=== PATIENT | male | born 1995 | race Caucasian/White ===

== ENCOUNTER 2017-04-28 11:27 | Emergency (ER) | payer BC, OTHER ==
[~2017-04-28] VITALS: Ht 175.3 cm; Wt 95.3 kg
[2017-04-28] MEDS ORDERED: DICY10CA12 PO (12:04)
[2017-04-28] MEDS ORDERED: ONDANSETRON 4 MG/2 ML (SDV) Z0FRAN IVP ONE (12:15)
[2017-04-28 12:27] LABS: BASOPHILS % (AUTO) 1 % (0-10); EOSINOPHILS # (AUTO) 0.1 10^3/uL (0.0-0.3); EOSINOPHILS % (AUTO) 1 % (0-10); LYMPHOCYTES # (AUTO) 1.1 X 10^3 (1.0-4.0); LYMPHOCYTES % (AUTO) 17 % (12-44); MEAN CORPUSCULAR HEMOGLOBIN 28 PG (25-34); MEAN CORPUSCULAR HGB CONC 34 G/DL (32-36); MEAN CORPUSCULAR VOLUME 84 FL (80-99); MEAN PLATELET VOLUME 10.4 FL (7.4-10.4); MONOCYTES # (AUTO) 0.5 X 10^3 (0.0-1.0); MONOCYTES % (AUTO) 8 % (0-12); NEUTROPHILS # (AUTO) 4.4 X 10^3 (1.8-7.8); NEUTROPHILS % (AUTO) 73 % (42-75); PLATELET COUNT 228 10^3/uL (130-400); RED CELL DISTRIBUTION WIDTH 14.3 % (10.0-14.5)
[2017-04-28 12:28] LABS: BILIRUBIN,URINE NEGATIVE (NEGATIVE); KETONES,URINE NEGATIVE (NEGATIVE); LEUKOCYTE ESTERASE ,URINE NEGATIVE (NEGATIVE); NITRITE,URINE NEGATIVE (NEGATIVE); PH,URINE 6.5 (5-9); PROTEIN,URINE 1+ (NEGATIVE); UROBILINOGEN,URINE NORMAL (NORMAL)
--- NOTE | 2017-04-28 12:32 | ED Abdominal Pain ---
General Chief Complaint: Abdominal/GI Problems Stated Complaint: SHARP STOMACH PAINS Nursing Triage Note: c/o right sided abd pain. Onset 0200 this morning. Nausea/vomiting reported. Sepsis Screen: No Definite Risk Source of Information: Patient Exam Limitations: No Limitations History of Present Illness Time Seen By Provider: 11:53 Initial Comments This 21-year-old young man presents to the emergency room with complaints of right lower quadrant pain just to the right of the umbilicus which she rates as 8/10. It woke him at 02:00. Patient was able to drive himself here and stated the car ride did not exacerbate his pain. He has a history of 2 prior episodes for which she was evaluated at another facility. He states he did not receive an official diagnosis for these episodes. He has had some vomiting but denies any fever, diarrhea, constipation, or urinary changes. He reports taking Zofran and dicyclomine at home without benefit. He denies any rectal bleeding. He denies any alcohol use but does admit to marijuana use as recently as one week ago. He has a history of inguinal hernia surgery 2. Allergies and Home Medications Allergies Coded Allergies: No Known Drug Allergies (Unverified , 04/28/17) Home Medications Dicyclomine HCl 10 Mg Capsule, 10 MG PO BID, (Reported) Ondansetron 4 Mg Tab.rapdis, 4 MG SL Q4H PRN for NAUSEA/VOMITING-1ST LINE, #10 Prescribed by: BRYAN SHEA on 04/28/17 1830 Oxycodone HCl/Acetaminophen 1 Each Tablet, 1-2 EACH PO Q4H PRN for PAIN- MODERATE TO SEVERE, #10 Prescribed by: BRYAN SHEA on 04/28/17 1830 Review of Systems Constitutional: no symptoms reported EENTM: No Symptoms Reported Respiratory: No Symptoms Reported Cardiovascular: No Symptoms Reported Gastrointestinal: See HPI Genitourinary: No Symptoms Reported Musculoskeletal: no symptoms reported Skin: no symptoms reported Psychiatric/Neurological: No Symptoms Reported Endocrine: No Symptoms Reported Hematologic/Lymphatic: No Symptoms Reported Past Lbrlsgo-Wpyyjk-Nafbby Hx Patient Social History Alcohol Use: Denies Use Recreational Drug Use: No Smoking Status: Never a Smoker Recent Foreign Travel: No Contact w/Someone Who Travel: No Recent Infectious Disease Expo: No Surgeries HX Surgeries: Yes Surgeries: Orthopedic (knee) Respiratory Hx Respiratory Disorders: No Cardiovascular Hx Cardiac Disorders: No Neurological Hx Neurological Disorders: No Reproductive System Hx Reproductive Disorders: No Genitourinary Hx Genitourinary Disorders: No Gastrointestinal Hx Gastrointestinal Disorders: Yes (recurrent episodes of abdominal pain, history of inguinal hernia) Musculoskeletal Hx Musculoskeletal Disorders: No Endocrine Hx Endocrine Disorders: No HEENT HX ENT Disorders: No Cancer Hx Cancer: No Psychosocial Hx Psychiatric Problems: No Physical Exam Vital Signs VS - Last 72 Hours, by Label 04/28/17 04/28/17 04/28/17 11:58 12:45 15:11 Temp 96.4 96.4 96.4 Pulse 70 Resp 16 B/P (MAP) 134/94 Pulse Ox 98 O2 Delivery Room Air Capillary Refill : Less Than 3 Seconds General Appearance: WD/WN, no apparent distress HEENT: PERRL/EOMI, normal ENT inspection, pharynx normal Neck: normal inspection Respiratory: lungs clear, normal breath sounds, no respiratory distress, no accessory muscle use Cardiovascular: regular rate, rhythm, no edema, no murmur Gastrointestinal: normal bowel sounds, soft, No distended, No guarding, No rebound, tenderness (right lower quadrant), other (positive Rovsing, negative psoas) Extremities: normal inspection, no pedal edema Back: normal inspection, CVA tenderness (R) (minimal), CVA tenderness (L) ( minimal) 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, no motor/sensory deficits, alert, normal mood/affect, oriented x 3 Skin: normal color, warm/dry Progress/Results/Core Measures Results/Orders Lab Results Laboratory Tests Test 04/28/17 11:50 04/28/17 12:15 Range/Units Urine Color YELLOW Urine Clarity CLEAR Urine pH 6.5 5-9 Urine Specific [place] 1.015 L 1.016-1.022 Urine Protein 1+ H NEGATIVE Urine Glucose (UA) NEGATIVE NEGATIVE Urine Ketones NEGATIVE NEGATIVE Urine Nitrite NEGATIVE NEGATIVE Urine Bilirubin NEGATIVE NEGATIVE Urine Urobilinogen NORMAL NORMAL MG/DL Urine Leukocyte Esterase NEGATIVE NEGATIVE Urine RBC (Auto) NEGATIVE NEGATIVE Urine RBC NONE /HPF Urine WBC NONE /HPF Urine Squamous Epithelial Cells RARE /HPF Urine Crystals NONE /LPF Urine Bacteria NEGATIVE /HPF Urine Casts NONE /LPF Urine Mucus SMALL H /LPF Urine Culture Indicated NO Urine Opiates Screen NEGATIVE NEGATIVE Urine Oxycodone Screen POSITIVE H NEGATIVE Urine Methadone Screen NEGATIVE NEGATIVE Urine Propoxyphene Screen NEGATIVE NEGATIVE Urine Barbiturates Screen NEGATIVE NEGATIVE Ur Tricyclic Antidepressants Screen NEGATIVE NEGATIVE Urine Phencyclidine Screen NEGATIVE NEGATIVE Urine Amphetamines Screen POSITIVE H NEGATIVE Urine Methamphetamines Screen NEGATIVE NEGATIVE Urine Benzodiazepines Screen NEGATIVE NEGATIVE Urine Cocaine Screen NEGATIVE NEGATIVE Urine Cannabinoids Screen NEGATIVE NEGATIVE White Blood Count 6.0 4.3-11.0 10^3/uL Red Blood Count 5.50 4.35-5.85 10^6/uL Hemoglobin 15.4 13.3-17.7 G/DL Hematocrit 46 40-54 % Mean Corpuscular Volume 84 80-99 FL Mean Corpuscular Hemoglobin 28 25-34 PG Mean Corpuscular Hemoglobin Concent 34 32-36 G/DL Red Cell Distribution Width 14.3 10.0-14.5 % Platelet Count 228 130-400 10^3/uL Mean Platelet Volume 10.4 7.4-10.4 FL Neutrophils (%) (Auto) 73 42-75 % Lymphocytes (%) (Auto) 17 12-44 % Monocytes (%) (Auto) 8 0-12 % Eosinophils (%) (Auto) 1 0-10 % Basophils (%) (Auto) 1 0-10 % Neutrophils # (Auto) 4.4 1.8-7.8 X 10^3 Lymphocytes # (Auto) 1.1 1.0-4.0 X 10^3 Monocytes # (Auto) 0.5 0.0-1.0 X 10^3 Eosinophils # (Auto) 0.1 0.0-0.3 10^3/uL Basophils # (Auto) 0.0 0.0-0.1 10^3/uL Sodium Level 139 135-145 MMOL/L Potassium Level 4.2 3.6-5.0 MMOL/L Chloride Level 104 98-107 MMOL/L Carbon Dioxide Level 23 21-32 MMOL/L Anion Gap 12 5-14 MMOL/L Blood Urea Nitrogen 9 7-18 MG/DL Creatinine 1.21 0.60-1.30 MG/DL Estimat Glomerular Filtration Rate > 60 BUN/Creatinine Ratio 7 Glucose Level 98 70-105 MG/DL Calcium Level 10.0 8.5-10.1 MG/DL Total Bilirubin 1.1 H 0.1-1.0 MG/DL Aspartate Amino Transf (AST/SGOT) 16 5-34 U/L Alanine Aminotransferase (ALT/SGPT) 18 0-55 U/L Alkaline Phosphatase 74 40-136 U/L C-Reactive Protein High Sensitivity 0.02 0.00-0.50 MG/DL Total Protein 8.4 H 6.4-8.2 GM/DL Albumin 4.8 H 3.2-4.5 GM/DL Lipase 9 8-78 U/L My Orders Orders - BRYAN CALVILLO MD Cbc With Automated Diff (04/28/17 12:01) Comprehensive Metabolic Panel (04/28/17 12:01) Lipase (04/28/17 12:01) Ua Culture If Indicated (04/28/17 12:01) Saline Lock/Iv-Start (04/28/17 12:01) Ondansetron Injection (Zofran Injectio (04/28/17 12:15) Drug Screen Stat (Urine) (04/28/17 12:05) Fentanyl Injection (Sublimaze Injection (04/28/17 12:45) Ct Abd/Pelv W (Appendicitis) (04/28/17 13:26) Iohexol Injection (Omnipaque 350 Mg/Ml 1 (04/28/17 13:30) Ns (Ivpb) (Sodium Chloride 0.9% Ivpb Bag (04/28/17 13:30) Us Scrotum (Testicle) [id number] (04/28/17 14:57) Mri Abdomen W/Wo Contrast (04/28/17 14:57) Ketorolac Injection (Toradol Injection) (04/28/17 15:00) Hs C Reactive Protein (04/28/17 15:03) General/Regular (04/28/17 Lunch) Gadobutrol Inj (Radiology) (Gadavist Inj (04/28/17 16:30) Medications Given in ED Current Medications Medications Dose Ordered Sig/Alba Route Start Time Stop Time Status Last Admin Dose Admin Fentanyl Citrate 50 mcg ONCE ONCE IVP 04/28/17 12:45 04/28/17 12:46 DC 04/28/17 12:45 50 MCG Gadobutrol 10 mmol ONCE ONCE IV 04/28/17 16:30 04/28/17 16:31 DC 04/28/17 17:25 8 MMOL Ketorolac Tromethamine 30 mg ONCE ONCE IVP 04/28/17 15:00 04/28/17 15:01 DC 04/28/17 15:11 30 MG Ondansetron HCl 8 mg ONCE ONCE IVP 04/28/17 12:15 04/28/17 12:16 DC 04/28/17 12:16 8 MG Vital Signs/I&O Vital Sign - Last 12Hours 04/28/17 04/28/17 04/28/17 11:58 12:45 15:11 Temp 96.4 96.4 96.4 Pulse 70 Resp 16 B/P (MAP) 134/94 Pulse Ox 98 O2 Delivery Room Air Blood Pressure Mean: 107 Progress Note #1: Time: 01:30 Progress Note Workup has been relatively unremarkable. Patient reports his drug screen was positive for oxycodone because he took some pills left over from his knee surgery when he began having abdominal pain last night. I discussed further workup to include CT scan with the patient. We discussed risks and benefits including exposure to radiation and IV contrast. Patient elects to proceed with CT scan to rule out appendicitis. Fentanyl 50 g was given for pain. Progress Note #2: Time: 15:[address] exam was reviewed and discussed with Dr. Uriarte. There is a mass near the bifurcation of the aorta in the retroperitoneal space that is compressing the IVC. This is in a location that correlates with his pain. The nature of the mass is indeterminate at this time. They could represent old hematoma, infection, abnormal lymph node, versus solid mass. If neoplastic, testicular neoplasm would be a consideration as the primary. Further evaluation was recommended by Dr. Uriarte. MRI with and without is the preferred modality. I discussed with the MRI department who is able to accomplish this study early this evening. Patient is willing to wait to have this done so as to expedite his evaluation. Prompt evaluation with MRIs felt necessary because of the complicated location of this mass and the intensity of patient's symptoms. In the meantime, ultrasound of the scrotum also be performed. Patient complains of insufficient relief of his pain with fentanyl, Toradol will be given for further pain management. Case was also reviewed with Dr. See who would like to see the patient for MRI follow-up in the [facility] tomorrow at 08:15. Progress Note #3: Time: 18:34 Progress Note Patient was feeling much better after Toradol. He was able to eat. MRI report was reviewed. Mass favors chronic hematoma versus complex cyst. Follow-up imaging in 3 months was recommended. Case was discussed with Dr. Hammond as well. He concurs with this recommendation. He also suggests no contact sports and use of aspirin 81 mg daily. If masses to be removed, he recommends a referral to an appropriate specialist. Patient was prescribed Percocet and Zofran. Follow-up with Dr. See tomorrow morning was recommended. Diagnostic Imaging Diagonstic Imaging: CT Plain Films/CT/US/NM/MRI: abdomen, pelvis Comments CT abdomen and pelvis viewed by me and report reviewed. See report below: NAME: PERICO ZAPATA [facility] REC#: [id number] PT STATUS: REG ER : 1995 PHYSICIAN: BRYAN CALVILLO MD ADMIT DATE: 04/28/17/ER Signed Date of Exam: 04/28/17 CT ABD/PELV W (APPENDICITIS) PROCEDURE: CT abdomen and pelvis with contrast, rule out appendicitis. TECHNIQUE: Multiple contiguous axial images were obtained through the abdomen and pelvis after the administration of intravenous contrast. INDICATION: History of inguinal hernia repair. 100 mL of Omnipaque-350 is administered intravenously. FINDINGS: The lung bases appear clear. The liver, the gallbladder, the spleen, the pancreas and the adrenal glands appear unremarkable. The left kidney demonstrates an elongated 1.2 cm hypodense lesion too small to accurately characterize. There is a 3.8 x 3.9 x 5.6 cm mass seen in the retroperitoneum anterior to the inferior vena cava. This is of intermediate density that does not change between the arterial and delayed phase. This is potentially related to a complicated cyst or a hypovascular mass. The appendix is normal. No bowel obstruction. No free fluid in the abdomen or pelvis seen. Although the mass compresses the inferior aspect of the IVC, there is no dilatation or thrombus formation in the upstream veins in the pelvis. The urinary bladder appears grossly unremarkable. IMPRESSION: There is an indeterminate retroperitoneal mass abutting the anterior aspect of the IVC and compressing it in the lower abdomen. It is of intermediate density. This could be a hypodense solid mass or a complicated cyst. MRI with and without contrast for further evaluation is recommended. Dr. Calvillo was informed of the findings at time of dictation. Dictated by: Dictated on workstation # [id number] Dict: 04/28/17 1410 Trans: 04/28/17 1711 Interpreted by: KEENA URIARTE MD Electronically signed by: KEENA URIARTE MD 04/28/17 1711 Diagonstic Imaging: Ultrasound Plain Films/CT/US/NM/MRI: other (scrotal) Comments Scrotal ultrasound report reviewed. See report below: NAME: PERICO ZAPATA [facility] REC#: [id number] PT STATUS: REG ER : 1995 PHYSICIAN: BRYAN CALVILLO MD ADMIT DATE: 04/28/17/ER Signed Date of Exam: 04/28/17 US SCROTUM (Testicle) [id number] EXAM: Scrotal ultrasound. INDICATION: Scrotal pain. Retroperitoneal enlarged mass. FINDINGS: The right testicle is 5 x 2.1 x 2.7 cm. The left testicle is 5.1 x 2.1 x 3 cm. Both testicles have normal echotexture and normal arterial and venous waveforms are seen. Simple cysts in the epididymis on the left side up to 3 mm in size are noted. No solid mass is identified. No hydrocele. No varicocele. IMPRESSION: No significant abnormality. Dictated by: Dictated on workstation # [id number] Dict: 04/28/17 1605 Trans: 04/28/17 1614 Interpreted by: KEENA URIARTE MD Electronically signed by: KEENA URIARTE MD 04/28/17 1614 Diagonstic Imaging: MRI Plain Films/CT/US/NM/MRI: abdomen, pelvis Comments MRI viewed by me and report reviewed. See report below: NAME: PERICO ZAPATA [facility] REC#: [id number] PT STATUS: REG ER : 1995 PHYSICIAN: BRYAN CALVILLO MD ADMIT DATE: 04/28/17/ER Draft Date of Exam:04/28/17 MRI ABDOMEN W/WO CONTRAST PROCEDURE: MR imaging abdomen with and without contrast. TECHNIQUE: Multiplanar, multisequence MR imaging of the abdomen was performed with and without contrast. INDICATION: Evaluation of a mass seen on CT scan of 04/28/2017. 8 mL of Gadavist is administered intravenously. FINDINGS: There is a 3.8 x 3.7 x 5.3 cm mass seen along the anterior aspect of the IVC in the lower abdomen compressing it with mild flow in the small remaining lumen. The lesion has smooth margins and is associated with components of T1 hyperintensity within this lesion and no definitive post-contrast enhancement. This is suggestive of a complicated cyst or old hemorrhage. The lesion in the superior aspect is abutting the third portion of the duodenum, and this could potentially be a duplication cyst with internal hemorrhage or debris. This does not appear to communicate with the aorta or the IVC. The iliac veins appear patent. There is no associated lymphadenopathy in the paracaval or para-aortic regions. IMPRESSION: The lower abdominal mass compressing and abutting the anterior aspect of the IVC has heterogeneous internal T1 hyperintense signal with no definitive post-contrast enhancement. This is therefore favored to be related to possibly a chronic hematoma or a duplication cyst with internal debris and/or hemorrhage. A followup MRI or CT scan of the abdomen in three months is recommended if no intervention is performed. The IVC compression could potentially predispose to development of iliac DVT. Dictated on workstation # [id number] Dict: 04/28/17 1733 Trans: 04/28/17 1755 [id number] Interpreted by: KEENA URIARTE MD Departure Impression Impression: Primary Impression: Abdominal mass Qualified Codes: R19.00 - Intra-abdominal and pelvic swelling, mass and lump, unspecified site Additional Impression: Abdominal pain Qualified Codes: R10.31 - Right lower quadrant pain Disposition: 01 HOME, SELF-CARE Condition: Improved Departure-Patient Inst. Decision time for Depature: 18:20 Referrals: KHADIJAH HAMMOND MD NO,LOCAL PHYSICIAN (PCP) Primary Care Physician JAGJIT SEE MD Add. Discharge Instructions: Follow-up with Dr. See at the [facility] tomorrow morning at 8:15. You may take ibuprofen up to 800 mg every 8 hours as needed for pain. Add Percocet as prescribed for pain not controlled by ibuprofen. Use Zofran (ondansetron) as prescribed for nausea or vomiting. The MRI report indicated this mass is most likely an old hematoma or complex cyst. The radiologist recommends repeating imaging in 3 months. The mass is compressing the IVC (larger vein in your abdomen). This would predispose you to blood clots. If you have any swelling or unusual pain in your legs, return to care promptly. Take aspirin 81 mg daily. No contact sports until cleared by a physician. You may call Dr. Calvillo at [phone] if your family has any questions or concerns about your visit today. If you require any follow-up with a general surgeon, you may contact Dr. HAMMOND. See contact information below. All discharge instructions reviewed with patient and/or family. Voiced understanding. Scripts Ondansetron (Zofran Odt) 4 Mg Tab.rapdis 4 MG SL Q4H Y for NAUSEA/VOMITING-1ST LINE, #10 TAB Prov: BRYAN CALVILLO MD 04/28/17 Oxycodone HCl/Acetaminophen (Percocet 5-325 mg Tablet) 1 Each Tablet 1-2 EACH PO Q4H Y for PAIN-MODERATE TO SEVERE, #10 TAB Prov: BRYAN CALVILLO MD 04/28/17 Copy Copies To 1: JAGJIT SEE MD Copies To 2: KHADIJAH HAMMOND MD, JOSHUA T MD Apr 28, 2017 12:32
[2017-04-28 12:37] LABS: SQUAMOUS EPITHELIAL CELL,UR RARE /HPF
[2017-04-28 12:44] LABS: ALANINE AMINOTRANSFERASE 18 U/L (0-55); ALBUMIN 4.8 GM/DL (3.2-4.5); ANION GAP 12 MMOL/L (5-14); ASPARTATE AMINO TRANSFERASE 16 U/L (5-34); BILIRUBIN,TOTAL 1.1 MG/DL (0.1-1.0); BLOOD UREA NITROGEN 9 MG/DL (7-18); BUN/CREATININE RATIO 7; CARBON DIOXIDE 23 MMOL/L (21-32); CHLORIDE 104 MMOL/L (98-107); CREATININE SERUM 1.21 MG/DL (0.60-1.30); GFR ESTIMATED > 60; GLUCOSE 98 MG/DL (70-105); LIPASE 9 U/L (8-78); POTASSIUM 4.2 MMOL/L (3.6-5.0); SODIUM 139 MMOL/L (135-145); TOTAL PROTEIN 8.4 GM/DL (6.4-8.2)
[2017-04-28] MEDS ORDERED: fentaNYL INJECTION 100 MCG/2 ML AMP IVP ONE (12:45)
[2017-04-28] MEDS ORDERED: NS 100 ML (IVPB) BAG IV ONE (13:30)
[2017-04-28] MEDS ORDERED: IOHEXOL 350 MG/ML 100 ML (OMNIPAQUE 350) VIAL IV ONE (13:30)
--- NOTE | 2017-04-28 14:41 | Diagnostic Imaging Report ---
PROCEDURE: CT abdomen and pelvis with contrast, rule out appendicitis. TECHNIQUE: Multiple contiguous axial images were obtained through the abdomen and pelvis after the administration of intravenous contrast. INDICATION: History of inguinal hernia repair. 100 mL of Omnipaque-350 is administered intravenously. FINDINGS: The lung bases appear clear. The liver, the gallbladder, the spleen, the pancreas and the adrenal glands appear unremarkable. The left kidney demonstrates an elongated 1.2 cm hypodense lesion too small to accurately characterize. There is a 3.8 x 3.9 x 5.6 cm mass seen in the retroperitoneum anterior to the inferior vena cava. This is of intermediate density that does not change between the arterial and delayed phase. This is potentially related to a complicated cyst or a hypovascular mass. The appendix is normal. No bowel obstruction. No free fluid in the abdomen or pelvis seen. Although the mass compresses the inferior aspect of the IVC, there is no dilatation or thrombus formation in the upstream veins in the pelvis. The urinary bladder appears grossly unremarkable. IMPRESSION: There is an indeterminate retroperitoneal mass abutting the anterior aspect of the IVC and compressing it in the lower abdomen. It is of intermediate density. This could be a hypodense solid mass or a complicated cyst. MRI with and without contrast for further evaluation is recommended. Dr. Calvillo was informed of the findings at time of dictation. Dictated by: Dictated on workstation # [id number]
[2017-04-28] MEDS ORDERED: KETOROLAC 30 MG/ML VIAL IVP ONE (15:00)
--- NOTE | 2017-04-28 16:09 | Diagnostic Imaging Report ---
EXAM: Scrotal ultrasound. INDICATION: Scrotal pain. Retroperitoneal enlarged mass. FINDINGS: The right testicle is 5 x 2.1 x 2.7 cm. The left testicle is 5.1 x 2.1 x 3 cm. Both testicles have normal echotexture and normal arterial and venous waveforms are seen. Simple cysts in the epididymis on the left side up to 3 mm in size are noted. No solid mass is identified. No hydrocele. No varicocele. IMPRESSION: No significant abnormality. Dictated by: Dictated on workstation # [id number]
[2017-04-28] MEDS ORDERED: GADOBUTROL 10 MMOL/10 ML (GADAVIST) VIAL IV ONE (16:30)
--- NOTE | 2017-04-28 17:56 | Diagnostic Imaging Report ---
PROCEDURE: MR imaging abdomen with and without contrast. TECHNIQUE: Multiplanar, multisequence MR imaging of the abdomen was performed with and without contrast. INDICATION: Evaluation of a mass seen on CT scan of 04/28/2017. 8 mL of Gadavist is administered intravenously. FINDINGS: There is a 3.8 x 3.7 x 5.3 cm mass seen along the anterior aspect of the IVC in the lower abdomen compressing it with mild flow in the small remaining lumen. The lesion has smooth margins and is associated with components of T1 hyperintensity within this lesion and no definitive post-contrast enhancement. This is suggestive of a complicated cyst or old hemorrhage. The lesion in the superior aspect is abutting the third portion of the duodenum, and this could potentially be a duplication cyst with internal hemorrhage or debris. This does not appear to communicate with the aorta or the IVC. The iliac veins appear patent. There is no associated lymphadenopathy in the paracaval or para-aortic regions. IMPRESSION: The lower abdominal mass compressing and abutting the anterior aspect of the IVC has heterogeneous internal T1 hyperintense signal with no definitive post-contrast enhancement. This is therefore favored to be related to possibly a chronic hematoma or a duplication cyst with internal debris and/or hemorrhage. A followup MRI or CT scan of the abdomen in three months is recommended if no intervention is performed. The IVC compression could potentially predispose to development of iliac DVT. Dictated by: Dictated on workstation # [id number]
[2017-04-28] MEDS ORDERED: OXYC-197 PO (18:30)
[2017-04-28] MEDS ORDERED: ONDA4TAB8 SL (18:30)
[2017-04-28 18:35] VITALS: BP 130/92
== END 2017-04-28 17:35 | disposition home or self-care (01) ==
LOC: ER 11:31
DX: R19.03 Right lower quadrant abdominal swelling, mass and lump (principal); R11.2 Nausea with vomiting, unspecified
CPT/HCPCS: 36415; 74177; 74183; 76870; 80053; 80306; 81000; 83690; 85025; 86141; 96374; 96375

== ENCOUNTER → 2017-04-29 | Outpatient (CLI) | payer BC ==
[~2017-04-29] MED LIST: DICY10CA12 PO; ONDA4TAB8 SL; OXYC-197 PO
--- NOTE | 2017-04-29 11:53 | Diagnostic Imaging Report ---
PA and lateral views of the chest Indication: Retroperitoneal mass Findings: The lungs are clear. The heart size is normal. There is no effusion or pneumothorax The mediastinum and shahram appear unremarkable. Impression: Unremarkable study. Dictated by: Dictated on workstation # [id number]
[2017-05-02 07:35] LABS: HCG TUMOR MARKER <2 mIU/mL (0-4)
[2017-05-02 07:37] LABS: ALPHA-FETO PROTEIN MARKER 1474.7 ng/mL (1.5-10.0)
== END ==
LOC: RAD 11:15
PROVIDERS: ATTEND Internal Medicine
DX: R10.84 Generalized abdominal pain (principal)
CPT/HCPCS: 36415; 71020; 82105; 83615; 84702

== ENCOUNTER 2017-12-11 23:32 | Emergency (ER) | payer BC ==
[~2017-12-11] VITALS: Ht 175.3 cm; Wt 90.7 kg
--- NOTE | 2017-12-12 00:10 | ED Lower Extremity ---
General Chief Complaint: Lower Extremity Stated Complaint: POSS DVT Source: patient Exam Limitations: no limitations History of Present Illness Date Seen by Provider: Dec 11, 2017 Time Seen by Provider: 23:50 Initial Comments Here with complaint of bilateral lower extremities swelling. 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 Tolerated the surgery well. He had the surgery after multiple rounds of chemotherapy and radiation therapy. Has been doing well until today when he noted that the right foot and lower leg were swelling and had some tingling and pain. This is somewhat resolved now that concerns about blood clot. States he may have had a blood clot previously but he is not real clear on the details. Takes aspirin daily. Onset: this evening Severity: mild Pain/Injury Location: right leg, right foot Method of Injury: unknown Modifying Factors: Improves With Rest Allergies and Home Medications Allergies Coded Allergies: No Known Drug Allergies (Unverified , 04/28/17) Home Medications Dicyclomine HCl 10 Mg Capsule, 10 MG PO BID, (Reported) Ondansetron 4 Mg Tab.rapdis, 4 MG SL Q4H PRN for NAUSEA/VOMITING-1ST LINE Prescribed by: BRYAN SHEA on 04/28/171829 Oxycodone HCl/Acetaminophen 1 Each Tablet, 1-2 EACH PO Q4H PRN for PAIN- MODERATE TO SEVERE Prescribed by: BRYAN SHEA on 04/28/171829 Patient Home Medication List Home Medication List Reviewed: Yes Constitutional: see HPI EENTM: no symptoms reported Respiratory: no symptoms reported Cardiovascular: no symptoms reported Gastrointestinal: no symptoms reported Genitourinary: no symptoms reported Musculoskeletal: see HPI, No joint pain, muscle pain Skin: change in color All Other Systems Reviewed Negative Unless Noted: Yes Past Afwwein-Jvgnue-Ekoavb Hx Patient Social History Alcohol Use: Occasionally Uses Recreational Drug Use: No Smoking Status: Never a Smoker Recent Foreign Travel: No Contact w/Someone Who Travel: No Surgeries History of Surgeries: Yes (left ACL, hernia repair x 2) Surgeries: Abdominal, Orthopedic Respiratory History of Respiratory Disorde: No Cardiovascular History of Cardiac Disorders: No Neurological History of Neurological Disord: No Reproductive System Hx Reproductive Disorders: No Genitourinary History of Genitourinary Disor: No Gastrointestinal History of Gastrointestinal Di: No Musculoskeletal History of Musculoskeletal Dis: No Endocrine History of Endocrine Disorders: No HEENT History of HEENT Disorders: No Cancer History of Cancer: Yes Did You Recieve Any Treatments: Yes Type of Tx Receive: Chemotherapy, Radiation, Surgical Intervention Psychosocial History of Psychiatric Problem: No Integumentary History of Skin or Integumenta: No Blood Transfusions History of Blood Disorders: No Physical Exam Vital Signs Vital Signs - First Documented 12/11/17 23:40 Temp 97.0 Pulse 82 Resp 18 B/P (MAP) 141/91 (108) Pulse Ox 100 Capillary Refill : General Appearance: WD/WN, no apparent distress Cardiovascular: regular rate, rhythm, no murmur Respiratory: lungs clear, normal breath sounds Gastrointestinal: soft, other (midline abdominal incision wound that is healing and appears to be clean, dry and intact.) Feet: left foot non-tender, left foot normal inspection, bilateral foot normal range of motion, bilateral foot no evidence of injury, right foot other (there is redness to the toes but more proximally skin color is normal. Distal pulses intact and equal bilateral. Nontender. Redness blanches well. Brisk capillary refill.) Neurologic/Tendon: normal sensation, normal motor functions Neurologic/Psychiatric: alert, oriented x 3 Skin: warm/dry, other (erythema as described above) Progress/Results/Core Measures Results/Orders My Orders Orders - PRECIOUS PARMAR MD Venous Lower Ext Rt (12/11/17 23:54) Vital Signs/I&O Vital Sign - Last 12Hours 12/11/17 23:40 Temp 97.0 Pulse 82 Resp 18 B/P (MAP) 141/91 (108) Pulse Ox 100 Progress Note : Progress Note Seen and evaluated. Ultrasound right lower extremity ordered due to risk of DVT. Patient has been off his aspirin for a couple of days. He has been traveling. High risk for DVT given his recent surgery, history of cancer and travel. Monitor patient. 0104: Ultrasound negative for DVT. We talked about further options for evaluation including labs and initially CT of his abdomen given his history. He advised to talk with his oncologist today since things are a little better. Strongly encouraged to return for any concerns including worsening pain, redness, fever or other concerns. Patient stated that he would. Discharged home with return precautions. Patient verbalize understanding instructions and agreement with plan. Departure Impression Impression: Primary Impression: Foot swelling Disposition: 01 HOME, SELF-CARE Condition: Improved Departure-Patient Inst. Decision time for Depature: 01:08 Referrals: NO,LOCAL PHYSICIAN (PCP/Family) Primary Care Physician Patient Instructions: Swelling Add. Discharge Instructions: All discharge instructions reviewed with patient and/or family. Voiced understanding. You should call your oncologist first thing in the morning to discuss your symptoms. Return for worse pain, swelling, redness, fever, weakness or other concerns as needed. Restart your aspirin tonight. PRECIOUS PARMAR MD Dec 12, 2017 00:10
[2017-12-12 01:25] VITALS: BP 141/91
--- NOTE | 2017-12-12 07:22 | Diagnostic Imaging Report ---
PROCEDURE: US right lower extremity venous. TECHNIQUE: Multiple real-time grayscale images were obtained over the right lower extremity in various projections. Additional duplex Doppler and color Doppler images were also obtained. DATE: December 12, 2017. INDICATION: 22-year-old male, right lower leg pain and redness. Recent surgery. Evaluation for DVT. COMPARISON: None. FINDINGS: The right common femoral vein, right superficial femoral vein, and right popliteal vein are all patent. The right posterior tibial and peroneal veins are patent. Visualized portions of the right greater saphenous vein and deep femoral vein are patent. IMPRESSION: Negative for right lower extremity deep venous thrombosis. Dictated by: Dictated on workstation # [id number]
== END 2017-12-12 01:25 | disposition home or self-care (01) ==
LOC: EDUNIT# 23:32 → ER 23:34
DX: M79.89 Other specified soft tissue disorders (principal); Z79.82 Long term (current) use of aspirin; Z85.038 Personal history of other malignant neoplasm of large intestine; Z92.21 Personal history of antineoplastic chemotherapy; Z92.3 Personal history of irradiation; Z98.890 Other specified postprocedural states